=== PATIENT | male | born 1980 | race Hispanic/Latino ===

== ENCOUNTER 2021-04-20 17:17 | Emergency (ER) | payer SELFPAY ==
[2021-04-20] MEDS ORDERED: Boostrix 0.5 ML (Tdap) VIAL ONE (20:54)
[2021-04-20] MEDS ORDERED: Bacitracin 1 PK ONE (20:54)
[2021-04-20] MEDS ORDERED: Bupivacaine 0.5% 10 ML VIAL ONE (20:56)
== END 2021-04-20 23:35 | disposition home or self-care (01) ==
LOC: ERS 17:17
DX: S61.012A Laceration without foreign body of left thumb without damage to nail, initial encounter (principal); W20.8XXA Other cause of strike by thrown, projected or falling object, initial encounter
CPT/HCPCS: 12034; 90471; 90715; J3490

== ENCOUNTER 2021-08-13 14:34 | Outpatient (CLI) | payer OTHER | END 2021-08-13 14:35 | disposition home or self-care (01) | LOC: BICULT 14:34 | PROVIDERS: ATTEND Nurse Practitioner Family | DX: N50.811 Right testicular pain (principal); N50.812 Left testicular pain | CPT/HCPCS: 76870; 93976 ==